=== PATIENT | male | born 1945 | race Caucasian/White ===

== ENCOUNTER → 2023-10-17 08:45 | Outpatient (REF) | payer MEDICARE, BC, SELFPAY ==
[2023-10-17 10:40] LABS: CEA 0.53 ng/ml
[2023-10-19 16:54] LABS: CA 19-9 13 U/mL (<=35)
== END ==
LOC: REG 08:45
PROVIDERS: ATTENDING PHYSICIAN Family Medicine
DX: R63.4 Abnormal weight loss (principal); K86.9 Disease of pancreas, unspecified; R63.5 Abnormal weight gain
CPT/HCPCS: 36415; 82378; 86301

== ENCOUNTER → 2023-10-25 14:32 | Outpatient (REF) | payer MEDICARE, BC, SELFPAY | LOC: HWRAD 14:32 | PROVIDERS: ATTENDING PHYSICIAN Family Medicine | DX: R63.4 Abnormal weight loss (principal); R73.01 Impaired fasting glucose; E78.00 Pure hypercholesterolemia, unspecified; R97.20 Elevated prostate specific antigen [PSA]; R19.5 Other fecal abnormalities | CPT/HCPCS: 74177; Q9967 ==